=== PATIENT | female | born 1950 | race Caucasian/White ===

== ENCOUNTER 2020-08-11 20:59 | Emergency (ER) | payer OTHER, BC ==
[2020-08-11 21:13] VITALS: BP 165/83; PULSE 89; TEMP 98.9; BMI 23.6
[2020-08-11 22:21] LABS: MEAN PLT VOLUME 7.7 fl (7.5-11.1)
[2020-08-11 22:28] LABS: HEMATOCRIT 39.2 % (32.4-45.2); HEMOGLOBIN 13.1 GM/dl (10.7-15.3); MCH 28.4 pg (25.7-33.7); MCHC 33.5 g/dl (32.0-36.0); MEAN CELL VOLUME 84.8 fl (80-96); PLATELET COUNT 335 K/MM3 (134-434); RBC 4.62 M/mm3 (3.60-5.2); WHITE BLOOD COUNT 9.1 K/mm3 (4.0-10.8)
[2020-08-11 22:35] LABS: BILIRUBIN,TOTAL 0.7 mg/dl (0.2-1); CALCIUM 8.7 mg/dl (8.5-10); CREATININE 0.5 mg/dl (0.55-1.3); POTASSIUM 3.7 mmol/L (3.5-5.1); TOT PROT 7.1 g/dl (6.4-8.2)
[2020-08-11 22:36] LABS: ADD RBC MORPHOLOGY NO
[2020-08-11 22:52] LABS: PLATELET ESTIMATE ADEQUATE
== END 2020-08-11 23:27 | disposition home or self-care (01) ==
LOC: FER 20:59
DX: R03.0 Elevated blood-pressure reading, without diagnosis of hypertension (principal)
CPT/HCPCS: 36415; 80053; 82550; 84443; 84484; 85025; 93005; 99284-25

== ENCOUNTER 2021-01-17 15:24 | Emergency (ER) | payer OTHER, BC ==
[2021-01-17] MEDS ORDERED: ACETAMINOPHEN 325 MG TABLET (FP) PO ONE (15:30)
[2021-01-17 15:45] VITALS: BP 112/56; PULSE 64; TEMP 98.2; BMI 26.2
[2021-01-17] MEDS ORDERED: ACETAMINOPHEN 325 MG TABLET (FP) ONE (15:46)
[2021-01-17] MEDS ORDERED: oxyCODONE HCL 5 MG TABLET PO ONE (17:16)
[2021-01-17] MEDS ORDERED: oxyCODONE HCL 5 MG TABLET ONE (17:20)
== END 2021-01-17 17:46 | disposition home or self-care (01) ==
LOC: FER 15:24
DX: S42.201A Unspecified fracture of upper end of right humerus, initial encounter for closed fracture (principal)
CPT/HCPCS: 71046-TC-FY; 73030-TC-RT-FY; 99284-25